=== PATIENT | female | born 1980 | race Hispanic/Latino ===

== ENCOUNTER 2022-04-22 16:02 | Emergency (ER) | payer SELFPAY ==
[~2022-04-22] VITALS: Ht 160 cm; Wt 62.8 kg
[2022-04-22] MEDS ORDERED: diazePAM 10 MG TAB PO ONE (19:40)
[2022-04-22] MEDS ORDERED: DIAZ10TA2 PO (19:58)
[2022-04-22 20:23] VITALS: BP 120/68
== END 2022-04-22 20:43 | disposition home or self-care (01) ==
LOC: M ED 16:02
DX: Z76.0 Encounter for issue of repeat prescription (principal); F41.9 Anxiety disorder, unspecified